=== PATIENT | female | born 1950 | race Caucasian/White ===

== ENCOUNTER 2017-04-09 10:30 | Outpatient (CLI) | payer OTHER | END 2017-04-09 10:31 | disposition home or self-care (01) | LOC: NAVSJIPCSP 10:30 | DX: E03.9 Hypothyroidism, unspecified (principal) | CPT/HCPCS: 36415; 84443 ==

== ENCOUNTER 2019-11-02 08:37 | Outpatient (CLI) | payer BC ==
--- NOTE | 2019-11-02 09:09 | RAD ---
RADIOGRAPH CHEST 2 VIEWS: DATE: 11/02/2019 HISTORY: 68-year-old female for preoperative clearance FINDINGS: There is no airspace density, pulmonary edema, pleural effusion, pneumothorax, or cardiomegaly. IMPRESSION: No acute cardiopulmonary findings.
== END 2019-11-02 08:38 | disposition home or self-care (01) ==
LOC: NAV RAD 08:37
PROVIDERS: ATTEND Family Medicine
DX: Z01.818 Encounter for other preprocedural examination (principal)
CPT/HCPCS: 71046